=== PATIENT | female | born 1945 | race Caucasian/White ===

== ENCOUNTER 2018-02-20 06:15 | Day surgery (SDC) | payer MEDICARE, OTHER ==
[~2018-02-20] VITALS: Ht 160 cm; Wt 64.0 kg
[~2018-02-20 06:15] MED LIST: ACTONEL150 MG PO; CALCIUM 600 +1 EAC1 PO; LISINOPRIL-HCT1 EAC2 PO; LOVASTATIN20 MG PO; SYNTHROID75 MCG PO; SYNTHROID88 MCG PO
--- NOTE | 2018-02-20 07:53 | NUR ---
02/20/18 0753 Cintia Faria 6059-PATIENT ARRIVED TO PACU ON 3L ON LEFT LATERAL SIDE. NONAROUSABLE. CO2 LEVEL 31. PATIENT OPENS EYES TO TACTILE AND VERBAL STIMULI DROWSY. BACK TO SLEEP. IVF INFUSING.
--- NOTE | 2018-02-21 09:12 | OR ---
[facility] [address] [place], [place] [address] Signed DATE OF OPERATION: 02/20/2018 SURGEON: Rosamaria Parra MD PREOPERATIVE DIAGNOSES: 1. Personal history of hyperplastic colonic polyps. 2. Internal and external hemorrhoids. POSTOPERATIVE DIAGNOSES: 1. Moderate sigmoid diverticulosis. 2. Moderate internal and external hemorrhoids. PROCEDURE: Colonoscopy without biopsy. ESTIMATED BLOOD LOSS: None. INDICATIONS: Angela is a 72-year-old female, asked to see me for followup colonoscopy. In 2007, she had 2 tiny hyperplastic polyps removed. She is also known to have internal and external hemorrhoids. There is no family history of colon cancer or polyps. She remains in excellent shape, but walking 2 miles every morning at our local gym. In the office, I gave Angela a pamphlet on colonoscopy. We looked at that together along with the risks including, but not limited to gas bloating, crampy abdominal pain, bleeding, perforation, requiring surgery and missed diagnosis. We also discussed the need for IV conscious sedation. She had expressed understanding and wished to proceed. She told me she had nausea after the last procedure. In our day surgery area, we offered her Zofran and Phenergan. She took the Zofran, but declined Phenergan because she did want to remain sleepy after the procedure. PROCEDURE NOTE: Angela was taken into the endoscopy suite and placed in the left lateral decubitus position. She was given 6 mg of Versed and 150 mcg of fentanyl to cover the case. A digital rectal exam was performed and as always, she has circumferential moderate external hemorrhoids. She has good sphincter tone. The adult colonoscope was introduced and advanced under direct visualization of the camera. Angela is smaller, built and her colon is long and narrow, somewhat redundant, so it took some extra pressure and extra medication to get the camera to go through all the way to the cecum itself. Her prep was quite excellent. The scope was then slowly withdrawn. She does Electronically Signed By: ROSAMARIA PARRA MD 02/21/18 0912 PATIENT NAME: ANGELA ROSALES OPERATIVE REPORT DATE OF : 49 REPORT #: [id number] PHYSICIAN: ROSAMARIA PARRA MD PCP: GENE COUGHLIN DO REPORT IS CONFIDENTIAL AND NOT TO BE RELEASED WITHOUT AUTHORIZATION [address] [address] Signed have moderate sigmoid diverticula. The rectum was unremarkable. Upon retroflexion of the scope, she has moderate internal hemorrhoids as well. After this, the gas was suctioned out. The colonoscope removed. Angela tolerated the procedure quite well. RECOMMENDATIONS: If Angela is in great shape at age 82, she is welcome to return for followup colonoscopy. MD NIC Weaver/DAWN /[id number] cc: MD Gene Weaver DO Copies: ROSAMARIA PARRA MD, FRANK E DO ~ Electronically Signed By: ROSAMARIA PARRA MD 02/21/1812 PATIENT NAME: CONNIEANGELA OPERATIVE REPORT DATE OF : 49 REPORT #: [id number] PHYSICIAN: ROSAMARIA PARRA MD PCP: GENE COUGHLIN DO REPORT IS CONFIDENTIAL AND NOT TO BE RELEASED WITHOUT AUTHORIZATION
== END 2018-02-20 08:49 | disposition home or self-care (01) ==
LOC: OPS 06:15 → DS 06:15 → OPS 06:45 → DS 06:45 → OPS 08:49
PROVIDERS: Colon & Rectal Surgery
PROC: 0DJD8ZZ Inspection of Lower Intestinal Tract, Via Natural or Artificial Opening Endoscopic (ICD-10-PCS; principal; 2018-02-20 06:45)
DX: Z12.11 Encounter for screening for malignant neoplasm of colon (principal); K64.8 Other hemorrhoids; K64.4 Residual hemorrhoidal skin tags; K57.30 Diverticulosis of large intestine without perforation or abscess without bleeding; I10 Essential (primary) hypertension; E78.5 Hyperlipidemia, unspecified; E03.9 Hypothyroidism, unspecified; Z86.010 Personal history of colon polyps; Z88.1 Allergy status to other antibiotic agents; Z88.0 Allergy status to penicillin; Z79.899 Other long term (current) drug therapy
CPT/HCPCS: G0500; J2250; J2405; J3010; J7120

== ENCOUNTER 2022-08-04 10:00 | Emergency (ER) | payer MEDICARE, BC ==
[~2022-08-04] VITALS: Ht 160 cm; Wt 73.9 kg
--- NOTE | 2022-08-04 14:30 | EKG ---
[facility] [address] [facility] [place], [place] [address] Signed Normal sinus rhythm Normal ECG No previous ECGs available Confirmed by ALINE PEÑA MD ([id number]) on 08/04/2022 2:29:49 PM Electronically Signed By: ALINE PEÑA MD 08/04/22 1430 PATIENT NAME: ANGELA ROSALES Electrocardiogram DATE OF : 49 PHYSICIAN: ALINE PEÑA MD REPORT #: [id number] REPORT IS CONFIDENTIAL AND NOT TO BE RELEASED WITHOUT AUTHORIZATION
== END 2022-08-04 13:06 | disposition home or self-care (01) ==
LOC: ED 10:00
DX: J06.9 Acute upper respiratory infection, unspecified (principal); R60.0 Localized edema; R79.0 Abnormal level of blood mineral; I10 Essential (primary) hypertension; E03.9 Hypothyroidism, unspecified; E78.00 Pure hypercholesterolemia, unspecified; Z87.891 Personal history of nicotine dependence; Z88.0 Allergy status to penicillin; Z88.1 Allergy status to other antibiotic agents; Z79.899 Other long term (current) drug therapy; Z20.822 Contact with and (suspected) exposure to COVID-19
CPT/HCPCS: 36415; 71045; 80053; 83735; 83880; 84484; 85025; 93005; 93010; 99284-25; C9803; U0003

== ENCOUNTER 2022-08-06 08:21 | Inpatient (IN) | payer MEDICARE, BC ==
[~2022-08-06] VITALS: Ht 160 cm; Wt 73.5 kg
--- OUTSIDE RECORDS SUMMARY | 2022-08-06 08:24 | XMS ---
PreManage Notification: ANGELA ROSALES Security Vp Treasurer Events No recent Security Events currently on file CRITERIA MET - [facility] - 2 Visits in 30 Days CARE PROVIDERS DEEPTHI COVARRUBIAS Physician Automotive Mechanic Current PHONE: [phone] Grace has no Care Guidelines for this patient. Arya VISIT COUNT (12 MO.) 2 [facility] TOTAL 2 NOTE: Visits indicate total known visits. ED/UCC VISIT TRACKING (12 MO.) 08/06/2022 08:22 [facility] OR TYPE: Emergency COMPLAINT: - SWELLING BOTH LEGS, SOB 08/04/2022 10:01 [facility]SE LU[facility] OR TYPE: Emergency COMPLAINT: - BODY SWELLING INPATIENT VISIT TRACKING (12 MO.) No inpatient visits to display in this time frame [email or web address]
[2022-08-06] MEDS ORDERED: LISINOPRIL10 MG PO (10:25)
--- NOTE | 2022-08-06 11:25 | NUR ---
REPORT FROM ER, RN.
--- NOTE | 2022-08-06 12:22 | NUR ---
PT UPRIGHT IN BED ALERT AND COOPERATIVE EATING NOON MEAL. CHF EDUCATION STARTED QUESTIONS ANSWERED, WRITTEN MATERIAL PROVIDED.
--- NOTE | 2022-08-06 13:06 | NUR ---
NOON MEAL WELL TOLERATED, EDUCATION COMPLETE R/T CHF. PT VERBALIZES UNDERSTANDING OF FLUID RESTRICTION. CALL LIGHT AND NEEDED ITEMS AT BEDSIDE. PT USES I.S. EFFECTIVELY WITH INSTRUCTION.
--- NOTE | 2022-08-06 14:35 | NUR ---
PT RESTING IN BED, EDUCATIONAL MATERIAL AT BEDSIDE. SHE DENIES QUESTIONS AT THIS TIME. SATS 94% ON ROOM AIR, 02 DC'D. PT DENIES SOB, CP, OR OTHER SYMPTOMS.
--- NOTE | 2022-08-06 17:03 | NUR ---
PT CONTINUES SATS 96% ON ROOM AIR C/O SOB WITH ACTIVITY. UP TO TOILET WITH 2LPM NC NO SOB SATS REMAIN IN THE 90'S. QUESTIONS ANSWERED R/T CHF. PT ORDERED EVENING MEAL, WATCHING TV NOW, DENIES DISCOMFORTS OR NEEDS OF.
--- NOTE | 2022-08-06 19:32 | NUR ---
received report from offgoing shift. Pt resting in room, on phone with family with no complaint of pain. Pt call light in reach
--- NOTE | 2022-08-06 21:10 | NUR ---
PT. RESTING WITH EYES CLOSED. AWAKENS EASILY TO VOICE. VITALS TAKEN. PT. DENIES FURTHER NEEDS AT THIS TIME.
--- NOTE | 2022-08-06 23:00 | NUR ---
in pt room for rounding, pt resting breathing even and unlabored. Pt call light in reach, no complaints of pain.
--- NOTE | 2022-08-07 00:48 | NUR ---
IN PT ROOM FOR ROUNDING. PT WAS RESTING EVEN BREATHING, UNLABORED, NO COMPLAINTS OF PAIN OR DISCOMFORT, CALL LIGHT IN REACH
--- NOTE | 2022-08-07 01:38 | NUR ---
VS AND I&O COMPLETE. PT UP TO BR TO VOID. 24 HOUR URINE COLLECTED. BACK TO BED, GET. DENIES SOB. 2L/NC IN PLACE. NO FUTHER NEEDS. CALL LIGHT IN REACH.
--- NOTE | 2022-08-07 02:30 | NUR ---
IN PT ROOM FOR ROUNDING. PT BREATHING EVEN AND UNLABORED, NO SIGNS OF DISCOMFORT. PT CALL LIGHT IN REACH, NPO SINCE MIDNIGHT
--- NOTE | 2022-08-07 04:28 | NUR ---
IN PT ROOM FOR ROUNDING. PT SLEEPING, CALL LIGHT IN REACH, NO SIGNS OF DISCOMFORT, BREATHING EVEN AND UNLABORED.
--- NOTE | 2022-08-07 07:45 | NUR ---
IN PT ROOM FOR ROUNDING. PT UP READING, COMPLIANT WITH DAILY WEIGHT. PT UP TO URINAL, BRUSHED TEETH. PT HAS NO COMPLAINT OF PAIN OR DISCOMFORT, CALL LIGHT IN REACH.
--- NOTE | 2022-08-07 08:05 | NUR ---
PT ALERT AND ORINETED, COOPERATIVE WITH ASSESSMENTS, ON O2 2LNC, LUNGS CLEAR BILAT AND DIM AT BAES, MELISSA, LBM 08/05. SL RAC. EDEMA TO LE 2+ PITTING BELOW THE KNEES, US TEACH IN ROOM. PT NPO WILL GIVE PO MEDS ON COMPLETION OF DI TEST
--- NOTE | 2022-08-07 08:46 | NUR ---
ABD US COMPLETED, PT UP IN CHAIR EATING, MEDS GIVEN, NO C/O PAIN. TOLERATED WELL.
--- NOTE | 2022-08-07 08:50 | NUR ---
Spoke with pt. She states she lives in a 2 story home and has had sob when attempting to climb stairs. She does not use any DME and denies need. She is currently on 02 and may need on dc. If she does require, she would like to use [facility]. She states her is in poor condition and uses a walker following back surgery. He is unable to help at all. Daughter helps her and will do assembled wood products repairer, grocery shop, and transport her if needed. Pt states she is usually active and feels she will return to baseline when she gets the extra fluid from her system. Daughter is Mary [phone]. Pt denies any financial issues. Plans on dc to home when cleared medically. Per Dr. Wade, pt will be here at least 2 more days.
--- NOTE | 2022-08-07 10:00 | NUR ---
pt took a shower minimum of assit, toelrated well, did own ADLS. back to chair, ambulated in room, tolerated well, Food Bagging Machine Operator Nghia in room talking to pt.
--- NOTE | 2022-08-07 10:00 | NUR ---
PATIENT WANTED TO TAKE A SHOWER. WRAPPED PATIENT'S IV. BED LINENS CHANGED. I STOOD BY WHILE PATIENT WAS IN THE SHOWER IN CASE SHE NEEDED ANY HELP. PATIENT SITTING UP IN CHAIR. PATIENT SITTING UP IN HER CHAIR FOR MEALS.
--- NOTE | 2022-08-07 10:25 | NUR ---
PT WAS UP IN CHAIR FOR MEALS, ATE 100%, BACK TO BED. SETTING UP FOR SHOWER. NO C/O LIGHTHEADNESS OR SOB, ON 1LNC, SATS 94-95%. AWARE OF NEED FOR URINE COLLECTION, FLUIDS RESTRITION. LASIX 40MG IV GIVEN, PROCEDURE EXPLAINED,. COOP
--- NOTE | 2022-08-07 12:19 | NUR ---
PT ALERT, ORIENTED AND SITTING IN CHAIR WITH O2 NC IN USE. PT IS PLEASANT, FEELS SHE IS WELL CARED FOR. EXPECTS HER SON TO VISIT TODAY AFTER WORK. PT REQUESTED TO HAVE FR RODRIGUEZ VISIT TODAY. WILL INFORM HIM. GAVE BLESSING AND WILL FOLLOW
--- NOTE | 2022-08-07 12:20 | NUR ---
in chair, eating lungch, no c/o pain or sob, O2 1LNC, will wean off. call light and fluids at hands reach
--- NOTE | 2022-08-07 13:17 | NUR ---
up in chair visiting with family. no c/o pain on O2 1LNC
--- NOTE | 2022-08-07 15:19 | NUR ---
PT ON ROOM AIR, SATS 94%, WENT FOR A WALK WITH SOLAR SYSTEMS DESIGNER, NO C/O PAIN OR SOB
--- NOTE | 2022-08-07 15:23 | NUR ---
PT WALKED 1 ROUND UP AND DOWN NURSING STATION, DROPPED TO 89% ON ROOM AIR, BACK TO BED, O2 BACK ON 1LNC HER REQUESTS. NO COUGH,
--- NOTE | 2022-08-07 16:33 | NUR ---
Pt in bed, O2 0.5L, sats 92%, no sob. no c/o pain. independent in room, voided clear urine. Cont with urine collection til 0013 tomorrow. urine in ice. Pt uses call light
--- NOTE | 2022-08-07 17:30 | NUR ---
Pt up in chair, eating, on 0.5L NC. was on room air earlier, walked aorund nursing stations and back, desatted to 89% on return, denied SOb. O2 0.5L placed back on at her requests, sats WNL at this time, denies sob. Lungs dim at bases, had a shower, ambulated in room. voiding QS, urine collection still going til midnight, Pt aware, uses call light, alert and oriented. SL patent. had an abd US this am, received 2 doses of Lasix IV. pt is a daily standing scale weight. no c/o pain
--- NOTE | 2022-08-07 19:31 | NUR ---
received report from offgoing shift, pt resting in room with no signs of distress, breathing is even and unlabored, call light in reach,
--- NOTE | 2022-08-07 21:03 | NUR ---
in pt room for rounding, VS, I&O's. Pt resting well, up to use bathroom. Ice changed in catch container. Pt denies pain or discomfort, call light in reach.
--- NOTE | 2022-08-07 22:57 | NUR ---
IN PT ROOM FOR ROUNDING. PT IS RESTING WITH BREATHING EVEN, UNLABORED. PT IS EXHIBITING NO SIGNS OF DISCOMFORT OR PAIN, CALL LIGHT IN REACH
--- NOTE | 2022-08-08 00:21 | NUR ---
IN PT ROOM FOR ROUNDING. PT RESTING, EYES CLOSED, BREATHING EVEN AND UNLABORED. PT CALL LIGHT IN REACH, NO SIGNS OR INDICATIONS OF DISTRESS OR PAIN
--- NOTE | 2022-08-08 01:40 | NUR ---
in pt room for rounding, retrieval of 24 hour urine culture. Culture delivered to Lab. Pt resting,breathing even and unlabored, no indications of pain or discomfort. call light in reach
--- NOTE | 2022-08-08 03:30 | NUR ---
IN PT ROOM FOR ROUNDING. PT SLEEPING, BREATHING IS EVEN AND UNLABORED. PT CALL LIGHT IN REACH, NO COMPLAINT OF PAIN OR DISCOMFORT
--- NOTE | 2022-08-08 05:16 | NUR ---
IN PT ROOM FOR ROUNDING, PT RESTING NO SIGNS OF DISTRESS, BREATHING EVEN AND UNLABORED, CALL LIGHT IN REACH.
--- NOTE | 2022-08-08 08:20 | NUR ---
REPORT RECEIVED FROM NIGHT RN AND PT CARE RESUMED. PT. IS ALERT, ORIENTED AND UP IN THE CHAIR FOR BREAKFAST. SHE DENIES PAIN OR SOB. ASSESSMENT COMPLETED. URINE EMPTIED FROM HAT. DISCUSSED ECHO, POC AND MEDS. LEFT RESTING WITH CALL LIGHT IN REACH.
--- NOTE | 2022-08-08 09:45 | NUR ---
ROUNDING ON PT. SHE IS IN BED AWAITING ECHO. BROUGHT WATER AND DENIES FURTHER NEEDS.
[2022-08-08] MEDS ORDERED: LIPITOR40 MG PO (10:56)
[2022-08-08] MEDS ORDERED: TORSEMIDE20 MG PO ×2 (10:57→11:07)
--- NOTE | 2022-08-08 11:52 | NUR ---
ALL DISCHARGE INSTRUCTIONS REVIEWED WITH PT. AND QUESTIONS ANSWERED PT. IV REMOVED BY PLANER OFFBEARER. VITALS STABLE AND PT. ON RA. SHE LEFT WITH ALL BELONGINGS VIA WHEELCHAIR.
--- NOTE | 2022-08-08 12:36 | NUR ---
PT ALERT, ORIENTED AND DRESSED SITTING IN CHAIR. ANTOLIN IBRAHIM IS IN HELPING PT GET READY FOR DC. GAVE BLESSING, PT THANKED ME FOR VISITING AND SHE DID MENTION THAT SHE ENJOYED FR RODRIGUEZ YESTERDAY. WILL FOLLOW
--- NOTE | 2022-08-10 15:15 | EKG ---
[facility] [address] [facility] [place] [address] Signed Normal sinus rhythm Normal ECG When compared with ECG of 04-AUG-2022 10:31, No significant change was found Confirmed by Laureen Estrada MD () on 08/10/2022 3:15:23 PM Electronically Signed By: LAUREEN ESTRADA MD 08/10/22 1515 PATIENT NAME: CONNIEANGELA Electrocardiogram DATE OF : 49 PHYSICIAN: LAUREEN ESTRADA MD REPORT #: [id number] REPORT IS CONFIDENTIAL AND NOT TO BE RELEASED WITHOUT AUTHORIZATION
== END 2022-08-08 11:54 | disposition home or self-care (01) | DRG 698 ==
LOC: ED 08:21 → MS 11:09
PROVIDERS: ADMIT Internal Medicine; ATTEND Internal Medicine
DX: N04.9 Nephrotic syndrome with unspecified morphologic changes (principal); J96.01 Acute respiratory failure with hypoxia; E87.1 Hypo-osmolality and hyponatremia; I11.0 Hypertensive heart disease with heart failure; N17.9 Acute kidney failure, unspecified; I50.9 Heart failure, unspecified; E88.09 Other disorders of plasma-protein metabolism, not elsewhere classified; E78.00 Pure hypercholesterolemia, unspecified; E03.9 Hypothyroidism, unspecified; Z20.822 Contact with and (suspected) exposure to COVID-19; Z87.891 Personal history of nicotine dependence; Z88.0 Allergy status to penicillin; Z88.1 Allergy status to other antibiotic agents; Z79.899 Other long term (current) drug therapy; Z79.811 Long term (current) use of aromatase inhibitors
CPT/HCPCS: 36415; 71045; 76700; 80048; 80053; 80061; 81001; 82570; 83036; 83735; 83880; 83930; 83935; 84156; 84300; 84484; 84550; 85025; 85610; 86038; 86140; 86161; 86704; 86803; 87088; 87502; 93005; 93010; 93306; 94760; 96374; 99285-25; C9803; J1650; J1940; U0003